=== PATIENT | male | born 1950 | race Caucasian/White ===

== ENCOUNTER 2019-07-22 13:52 | Emergency (ER) | payer MEDICAID ==
[~2019-07-22] VITALS: Ht 165.1 cm; Wt 80.0 kg
[~2019-07-22 13:52] MED LIST: ACET-2178 PO; AMLO10TA4 PO; ASPI-1393 PO; ASPI-986 MT; CIME800T MT; CLON0.1T14 PO; CLOP75TA33 PO; COR6 MT; DEXT15DR5 EACHEYE; DOCU-150 PO; GUAI120015 PO; HYDR-4005 MT; HYDR-4135 PO; HYDR-523 PO; LISI-604 PO; LOSA25TA26 MT; NEPVIT MT; OLAN2.5T3 PO; ONDA4TAB5 PO; POLY17PO3 MT; PROSTAT PO; REN800 MT; SEVE800T8 PO; TRAM50TA94 PO; ZINC SULFATE; ZOLP5TAB2 PO
[2019-07-22] MEDS ORDERED: ONDANSETRON HCL 4MG/2ML INJ IV STA (16:04)
[2019-07-22] MEDS ORDERED: MORPHINE SULFATE 4 MG/ML CPJ (NOT FOR IM USE) IV STA (16:04)
[2019-07-22 16:42] LABS: BASOPHILS % 0.4 % (0.0-2.0); EOSINOPHILS % 2.5 % (0.0-5.0); HEMATOCRIT. 31.6 % (42.0-52.0); LYMPHOCYTES % 18.5 % (20.0-50.0); MEAN CORPUSCULAR HEMOGLOBIN 32.7 pg (28.0-32.0); MEAN CORPUSCULAR VOLUME 93.9 fL (80.0-94.0); MEAN PLATELET VOLUME 8.2 fl (7.4-10.4); NEUTROPHILS % 66.6 % (40.0-76.0); PLATELET 141 x1000/uL (130-400); RED BLOOD CELL COUNT 3.37 mill/uL (4.7-6.1); RED CELL DISTRIBUTION WIDTH 15.4 % (11.6-14.6)
[2019-07-22 16:48] LABS: INR 1.2
[2019-07-22 16:51] LABS: CHLORIDE 98 mEq/L (98-107)
[2019-07-22 16:55] LABS: ETHANOL BLOOD < 10 mg/dL
[2019-07-22 18:08] LABS: CLARITY URINE CLOUDY (CLEAR); COLOR URINE YELLOW (YELLOW); KETONES URINE NEGATIVE (NEGATIVE); LEUKOCYTE ESTERASE URINE NEGATIVE (NEGATIVE); NITRITE URINE NEGATIVE (NEGATIVE); OCCULT BLOOD URINE 1+ (NEGATIVE); PH URINE >=9.0 (4.5-8.0); PROTEIN URINE 4+ (NEGATIVE); SPECIFIC GRAVITY URINE 1.017 (1.005-1.030); UROBILINOGEN URINE 0.2 E.U./dL (0.2-1.0)
[2019-07-22 18:16] LABS: *AMPHETAMINES SCREEN URINE NEGATIVE (NEGATIVE)
[2019-07-22 18:17] LABS: *BARBITURATES SCREEN URINE NEGATIVE (NEGATIVE); *BENZODIAZEPINES SCREEN URINE NEGATIVE (NEGATIVE); *COCAINE SCREEN URINE NEGATIVE (NEGATIVE); METHADONE URINE SCREEN NEGATIVE (NEGATIVE); OPIATES URINE SCREEN PRESUMTIVE POSITIVE (NEGATIVE); PHENCYCLIDINE URINE SCREEN NEGATIVE (NEGATIVE)
[2019-07-22 18:18] LABS: CANNABINOID URINE SCREEN NEGATIVE (NEGATIVE)
[2019-07-22 23:10] VITALS: BP 130/72
== END 2019-07-22 23:33 | disposition home or self-care (01) ==
LOC: ER 13:52 → CANBEDREQ 23:01 → ER 23:33
DX: K42.9 Umbilical hernia without obstruction or gangrene (principal); K40.90 Unilateral inguinal hernia, without obstruction or gangrene, not specified as recurrent; E11.22 Type 2 diabetes mellitus with diabetic chronic kidney disease; I12.0 Hypertensive chronic kidney disease with stage 5 chronic kidney disease or end stage renal disease; D63.1 Anemia in chronic kidney disease; N18.6 End stage renal disease; Z99.2 Dependence on renal dialysis; Z79.82 Long term (current) use of aspirin
CPT/HCPCS: 36415; 71045; 74176; 80053; 80305; 80320; 81003; 83690; 83880; 84484; 85025; 85610; 93005; 96374; 99284; J2405; P9612; G0480

== ENCOUNTER 2019-12-21 10:25 | Day surgery (SDC) | payer MEDICAID ==
[~2019-12-21 10:25] MED LIST changes: -ACET-2178 PO; -AMLO10TA4 PO; +ARIP15TA2 PO; -ASPI-1393 PO; +ASPI-1497 PO; -ASPI-986 MT; -CIME800T MT; +CINA30 MT; -CLOP75TA33 PO; -DEXT15DR5 EACHEYE; +GABA-531 MT; -HYDR-4135 PO; -LISI-604 PO; -OLAN2.5T3 PO; -POLY17PO3 MT; -REN800 MT; +SIME125C PO; +TOPUD PO
[2019-12-21 11:47] LABS: HEMATOCRIT 33.5 % (42.0-52.0); MEAN CORPUSCULAR HEMOGLOBIN 31.4 pg (28.0-32.0); MEAN CORPUSCULAR VOLUME 95.3 fL (80.0-94.0); PLATELET 152 x1000/uL (130-400); RED BLOOD CELL COUNT 3.51 mill/uL (4.7-6.1); RED CELL DISTRIBUTION WIDTH 16.2 % (11.6-14.6)
[2019-12-21 12:16] LABS: INR 1.2
[2019-12-21] MEDS ORDERED: FENTANYL CITRATE/PF 50MCG/ML 2ML VIAL ONE (12:26)
[2019-12-21] MEDS ORDERED: MIDAZOLAM HCL 2 MG/2 ML VIAL ONE (12:26)
[2019-12-21] MEDS ORDERED: LIDOCAINE HCL 1% 20ML VIAL (Pyxis) INJ ONE (12:26)
[2019-12-21] MEDS ORDERED: IODIXANOL 320MG/ML 100 ML BOTTLE IV ONE (12:43)
[2020-02-23] MEDS ORDERED: AMLO2.5T45 PO (12:49)
[2020-02-23] MEDS ORDERED: COR3 PO (12:49)
[2020-02-23] MEDS ORDERED: LEVO500T2 MT (13:17)
== END 2019-12-21 14:00 | disposition home or self-care (01) ==
LOC: CCL 10:25
PROVIDERS: ATTEND Surgery Vascular Surgery
DX: I87.1 Compression of vein (principal); I12.0 Hypertensive chronic kidney disease with stage 5 chronic kidney disease or end stage renal disease; E11.22 Type 2 diabetes mellitus with diabetic chronic kidney disease; E11.42 Type 2 diabetes mellitus with diabetic polyneuropathy; F20.0 Paranoid schizophrenia; N18.6 End stage renal disease; D63.1 Anemia in chronic kidney disease; E46 Unspecified protein-calorie malnutrition; G47.00 Insomnia, unspecified; Z99.2 Dependence on renal dialysis; Z79.4 Long term (current) use of insulin; Z79.82 Long term (current) use of aspirin; Z79.899 Other long term (current) drug therapy; Z98.890 Other specified postprocedural states
CPT/HCPCS: 36415; 75820; 80048; 85027; 85610; 93005; C1893; J1644; J3490; Q9967; J2250; J3010

== ENCOUNTER 2020-05-22 09:04 | Inpatient (IN) | payer MEDICAID ==
[~2020-05-22] VITALS: Ht 157.5 cm; Wt 63.2 kg
[~2020-05-22 09:04] MED LIST changes: +AMLO2.5T45 PO; -CLON0.1T14 PO; -COR6 MT; +LEVO500T2 MT
[2020-05-22] MEDS ORDERED: ACETAMINOPHEN 325MG TABLET PO STA (09:47)
[2020-05-22] MEDS ORDERED: DOXYCYCLINE HYCLATE 100 MG/VIAL IV ONE (10:00)
[2020-05-22] MEDS ORDERED: CEFTRIAXONE 1 G PREMIX 50 ML IV SCH (10:00)
[2020-05-22] MEDS ORDERED: DOXYCYCLINE 100MG in DEXTROSE 5% WATER 100ML IV SCH (11:00)
[2020-05-22 11:52] LABS: HEMOGLOBIN. 11.2 g/dL (14.0-18.0); MEAN CORPUSCULAR HEMOGLOBIN 33.1 pg (28.0-32.0); MEAN CORPUSCULAR VOLUME 97.3 fL (80.0-94.0); MEAN PLATELET VOLUME 9.3 fl (7.4-10.4); PLATELET 141 x1000/uL (130-400); RED BLOOD CELL COUNT 3.39 mill/uL (4.7-6.1); RED CELL DISTRIBUTION WIDTH 15.4 % (11.6-14.6)
[2020-05-22 12:16] LABS: PLATELET ESTIMATE NORMAL
[2020-05-22 12:32] LABS: CHLORIDE 102 mEq/L (98-107)
[2020-05-22 12:41] LABS: CREATINE KINASE 56 IU/L (39-308)
[2020-05-22] MEDS ORDERED: DEXTROSE 50% WATER 50ML SYRINGE IV PRN (13:45)
[2020-05-22] MEDS ORDERED: ONDANSETRON HCL 4MG/2ML INJ IV PRN (13:45)
[2020-05-22 13:49] LABS: D-DIMER 8.5 mg/L FEU (<0.50); INR 1.2; PROTHROMBIN TIME 12.3 sec (9.6-11.0)
[2020-05-22] MEDS ORDERED: VANCOMYCIN 1250MG in DEXTROSE 5% WATER 250ML IV NR (14:00)
[2020-05-22] MEDS ORDERED: PIPERACILLIN/TAZOBACTAM 3.375 G in DEXTROSE 5% WATER 50 ML IV SCH (14:00)
[2020-05-22] MEDS: LOSARTAN POTASSIUM 25 MG TABLET PO SCH (15:15)
[2020-05-22] MEDS: PIPERACILLIN/TAZOBACTAM 3.375 G in DEXT 5% WATER 100 ML IV SCH (15:16)
[2020-05-22] MEDS: BLOOD SUGAR DIAGNOSTIC STRIP TEST SCH (16:30)
[2020-05-22] MEDS: INSULIN LISPRO 100 UNITS/ML SUBCUT SCH (18:20)
[2020-05-22] MEDS ORDERED: TRAZODONE HCL 50MG TABLET PO PRN (21:00)
[2020-05-22] MEDS ORDERED: CARVEDILOL 3.125 MG TABLET PO SCH (21:00)
[2020-05-23] MEDS: PIPERACILLIN/TAZOBACTAM 3.375 G in DEXT 5% WATER 100 ML IV SCH ×2 (02:06→14:06)
[2020-05-23 04:48] LABS: CHLORIDE 103 mEq/L (98-107)
[2020-05-23 08:22] LABS: BASOPHILS % 0.2 % (0.0-2.0); HEMATOCRIT. 33.2 % (42.0-52.0); HEMOGLOBIN. 11.4 g/dL (14.0-18.0); LYMPHOCYTES % 11.3 % (20.0-50.0); MEAN CORPUSCULAR HEMOGLOBIN 33.1 pg (28.0-32.0); MEAN CORPUSCULAR VOLUME 96.7 fL (80.0-94.0); MEAN PLATELET VOLUME 9.2 fl (7.4-10.4); MONOCYTES % 6.5 % (2.0-8.0); PLATELET 129 x1000/uL (130-400); RED BLOOD CELL COUNT 3.43 mill/uL (4.7-6.1); RED CELL DISTRIBUTION WIDTH 15.4 % (11.6-14.6)
[2020-05-23] MEDS: LOSARTAN POTASSIUM 25 MG TABLET PO SCH (09:00)
[2020-05-23] MEDS: HEPARIN 5000 UNITS/ML VIAL SUBCUT SCH ×2 (09:00→21:42)
[2020-05-23] MEDS: BLOOD SUGAR DIAGNOSTIC STRIP TEST SCH ×3 (11:30→20:31)
[2020-05-23] MEDS: INSULIN LISPRO 100 UNITS/ML SUBCUT SCH ×3 (12:00→21:00)
[2020-05-23 14:08] VITALS: BP 122/57
[2020-05-23 14:33] VITALS: BP 122/57
[2020-05-23] MEDS ORDERED: CARV6.2548 MT (15:43)
[2020-05-23] MEDS ORDERED: CLON-457 PO (15:43)
[2020-05-23] MEDS ORDERED: POLY17PO3 MT (15:43)
[2020-05-23 16:00] VITALS: BP 116/55
[2020-05-23 18:42] VITALS: BP 127/67
[2020-05-23 20:00] VITALS: BP 129/69
[2020-05-23] MEDS: CARVEDILOL 3.125 MG TABLET PO SCH (21:44)
[2020-05-23 22:00] VITALS: BP 125/67
[2020-05-24] VITALS (12 sets, daily range): BP systolic 103–131; BP diastolic 49–74
[2020-05-24] MEDS: PIPERACILLIN/TAZOBACTAM 3.375 G in DEXT 5% WATER 100 ML IV SCH ×2 (01:19→13:07)
[2020-05-24] MEDS: ACETAMINOPHEN 325MG TABLET PO PRN ×2 (04:59→18:23)
[2020-05-24] MEDS: BLOOD SUGAR DIAGNOSTIC STRIP TEST SCH ×3 (05:49→16:37)
[2020-05-24] MEDS: INSULIN LISPRO 100 UNITS/ML SUBCUT SCH ×4 (07:20→16:37)
[2020-05-24] MEDS: CARVEDILOL 3.125 MG TABLET PO SCH (08:59)
[2020-05-24] MEDS: LOSARTAN POTASSIUM 25 MG TABLET PO SCH (09:00)
[2020-05-24] MEDS: HEPARIN 5000 UNITS/ML VIAL SUBCUT SCH (09:01)
[2020-05-24 09:42] LABS: BASOPHILS % 0.3 % (0.0-2.0); EOSINOPHILS % 1.6 % (0.0-5.0); HEMOGLOBIN. 11.5 g/dL (14.0-18.0); LYMPHOCYTES % 13.1 % (20.0-50.0); MEAN CORPUSCULAR HEMOGLOBIN 32.7 pg (28.0-32.0); MEAN CORPUSCULAR VOLUME 96.3 fL (80.0-94.0); MEAN PLATELET VOLUME 8.4 fl (7.4-10.4); MONOCYTES % 9.4 % (2.0-8.0); NEUTROPHILS % 75.6 % (40.0-76.0); PLATELET 137 x1000/uL (130-400); RED BLOOD CELL COUNT 3.53 mill/uL (4.7-6.1)
[2020-05-24 09:56] LABS: CHLORIDE 106 mEq/L (98-107)
[2020-05-24] MEDS ORDERED: VANCOMYCIN 1 G PREMIX 200 ML IV NR (14:00)
[2020-05-24] MEDS ORDERED: MEROPENEM 1,000 MG in SODIUM CHLORIDE 0.9% 100 ML IV SCH (15:30)
== END 2020-05-24 21:36 | DRG 720 ==
LOC: ER 09:19 → MICUSO 10:32 → EDBEDREQTM 10:35 → EDBEDREQ 10:35 → UNDODISIN 05-23 12:07 → 3WST 05-23 14:45
PROVIDERS: ADMIT Internal Medicine; ATTEND Internal Medicine
PROC: 5A1D70Z Performance of Urinary Filtration, Intermittent, Less than 6 Hours Per Day (ICD-10-PCS; principal; 2020-05-23)
DX: A41.51 Sepsis due to Escherichia coli [E. coli] (principal); J96.00 Acute respiratory failure, unspecified whether with hypoxia or hypercapnia; I13.2 Hypertensive heart and chronic kidney disease with heart failure and with stage 5 chronic kidney disease, or end stage renal disease; E44.0 Moderate protein-calorie malnutrition; J18.9 Pneumonia, unspecified organism; E87.2 Acidosis; E87.5 Hyperkalemia; E11.22 Type 2 diabetes mellitus with diabetic chronic kidney disease; N18.6 End stage renal disease; E87.1 Hypo-osmolality and hyponatremia; Z99.2 Dependence on renal dialysis; D64.9 Anemia, unspecified; R00.1 Bradycardia, unspecified; E78.5 Hyperlipidemia, unspecified; K40.20 Bilateral inguinal hernia, without obstruction or gangrene, not specified as recurrent; R79.89 Other specified abnormal findings of blood chemistry; I50.9 Heart failure, unspecified; Z16.12 Extended spectrum beta lactamase (ESBL) resistance; Z03.818 Encounter for observation for suspected exposure to other biological agents ruled out; Z68.25 Body mass index [BMI] 25.0-25.9, adult; Z79.899 Other long term (current) drug therapy; Z79.82 Long term (current) use of aspirin
CPT/HCPCS: 36415; 71045; 76770; 80053; 80202; 82550; 82728; 82962; 83036; 83605; 83615; 83735; 83880; 84145; 84484; 85025; 85379; 85384; 86140; 87077; 87186; 93005; 96365; 99285; J0696; J1644; J1815; J2185; J2543; J3370; J3490; J7050; J7060; U0003-CS